=== PATIENT | male | born 1985 | race Two or more races ===

== ENCOUNTER → 2016-12-01 | Outpatient (REF) | payer BC ==
[~2016-12-01] MED LIST: IBUP200C10 PO; MOBI15TA PO; TIZA4CAP3 PO
[2016-12-01 12:54] LABS: BASO % 0.8 % (0.0-1.0); EOS # 0.2 K/mm3 (0.0-0.50); LARGE UNSTAINED CELL # 0.3 K/mm3 (0.0-0.4); LARGE UNSTAINED CELL % 4.6 % (0.0-4.0); LYMPH # 1.9 K/mm3 (1.5-4.5); LYMPH % 31.5 % (24.0-44.0); MEAN CORPUSCULAR HEMOGLOBIN 31.3 pg (27.0-33.0); MEAN CORPUSCULAR VOLUME 87.1 fl (80.0-96.0); MONO # 0.3 K/mm3 (0.0-0.8); MONO % 4.4 % (0.0-5.0); NEUTROPHILS # 3.4 K/mm3 (1.8-7.7); NEUTROPHILS % 54.8 % (36.0-66.0); PLATELET COUNT, AUTOMATED 243 k/mm3 (150-450); WHITE BLOOD COUNT 6.2 K/mm3 (4.0-10.0)
[2016-12-01 13:19] LABS: ALBUMIN 4.1 GM/DL (3.2-5.2); ALBUMIN/GLOBULIN RATIO 1.32 (1.00-1.93); ALKALINE PHOSPHATASE 78 U/L (45-117); ALT/SGPT 123 U/L (12-78); ANION GAP 11 MEQ/L (8-16); AST/SGOT 36 U/L (15-37); BILIRUBIN,TOTAL 0.6 MG/DL (0.2-1.0); BLOOD UREA NITROGEN 13 MG/DL (7-18); CALCIUM LEVEL 8.9 MG/DL (8.5-10.1); CARBON DIOXIDE LEVEL 24 MEQ/L (21-32); CHLORIDE LEVEL 107 MEQ/L (98-107); CHOLESTEROL LEVEL 232 MG/DL (<200); CREATININE FOR GFR 0.81 MG/DL (0.70-1.30); FREE T4 1.18 NG/DL (0.76-1.46); GLOMERULAR FILTRATION RATE > 60.0 (>60); GLUCOSE, FASTING 97 MG/DL (70-105); POTASSIUM SERUM 4.1 MEQ/L (3.5-5.1); SODIUM LEVEL 142 MEQ/L (136-145); TOTAL PROTEIN 7.2 GM/DL (6.4-8.2); TRIGLYCERIDES LEVEL 177 MG/DL (<150)
--- NOTE | 2016-12-17 09:51 | ECWPNAD ---
PATIENT NAME: BISHOP GONZALES : 1985 GENDER: MALE VISIT DATE: 12/01/2016 DISCHARGE DATE: 12/01/16 0000 VISIT LOCKED DATE TIME: PHYSICIAN: CAT DU RESOURCE: UZMA AVITIA REASON FOR APPOINTMENT 1. LABS PAST MEDICAL HISTORY 10/26 - DIFFUSE DISC BULGE AT L4-5, MINIMAL THECAL SAC COMPRESSION GERD ALLERGIES NO[ALLERGIES VERIFIED] ASSESSMENTS ELEVATED BLOOD-PRESSURE READING, WITHOUT DIAGNOSIS OF HYPERTENSION - R03.0 (PRIMARY) FAMILY HISTORY OF HEART DISEASE - Z82.49 LOOSE STOOLS - R19.5 TREATMENT ELEVATED BLOOD-PRESSURE READING, WITHOUT DIAGNOSIS OF HYPERTENSION LAB: CBC WITH DIFFERENTIAL WBC 6.2 (4.0-10.0 - K/MM3) RBC 5.25 (4.30-6.10 - M/MM3) HEMOGLOBIN 16.4 (14.0-18.0 - G/DL) HEMATOCRIT 45.7 (42.0-52.0 - %) MCV 87.1 (80.0-96.0 - FL) MCH 31.3 (27.0-33.0 - PG) MCHC 36.0 (32.0-36.5 - G/DL) RDW 13.0 (11.5-14.5 - %) PLATELET COUNT 243 (150-450 - K/MM3) LYMPH % 31.5 (24.0-44.0 - %) MONO % 4.4 (0.0-5.0 - %) NEUT % 54.8 (36.0-66.0 - %) EOS % 4.0 (0.0-3.0 - %) BASO % 0.8 (0.0-1.0 - %) NEUT # 3.4 (1.8-7.7 - K/MM3) LYMPH # 1.9 (1.5-4.5 - K/MM3) MONO # 0.3 (0.0-0.8 - K/MM3) EOS # 0.2 (0.0-0.50 - K/MM3) BASO # 0.0 (0.0-0.2 - K/MM3) LAB: COMPREHENSIVE METABOLIC PROFILE GLUCOSE 97 (70-105 - MG/DL) BUN 13 (7-18 - MG/DL) CREATININE 0.81 (0.70-1.30 - MG/DL) GLOMERULAR FILTRATION RATE > 60.0 (>60 - ) SODIUM 142 (136-145 - MEQ/L) POTASSIUM 4.1 (3.5-5.1 - MEQ/L) CHLORIDE 107 (98-107 - MEQ/L) CARBON DIOXIDE 24 (21-32 - MEQ/L) CALCIUM 8.9 (8.5-10.1 - MG/DL) AST/SGOT 36 (15-37 - U/L) ALT/SGPT 123 (12-78 - U/L) ALK PHOS 78 (45-117 - U/L) BILIRUBIN,TOTAL 0.6 (0.2-1.0 - MG/DL) TOTAL PROTEIN 7.2 (6.4-8.2 - GM/DL) ALBUMIN 4.1 (3.2-5.2 - GM/DL) ALB/GLOB RATIO 1.32 (1.00-1.93 - ) LAB: FREE T4 FREE T4 1.18 (0.76-1.46 - NG/DL) LAB: LIPID PANEL (CARDIAC RISK) TRIGLYCERIDES 177 (<150 - MG/DL) CHOLESTEROL 232 (<200 - MG/DL) HDL CHOLESTEROL 40 (>40 - MG/DL) LDL CHOLESTEROL 156.6 (<100 - MG/DL) [id number] 192 ( - MG/DL) CHOL/HDL RATIO 5.800 (<5 - ) LAB: TSH TSH ULTRASENSITIVE 0.940 (0.358-3.740 - UIU/ML) LAB: VITAMIN D 25-HYDROXY VITAMIN D 25 OH 21.0 (30.0-100.0 - NG/ML) FAMILY HISTORY OF HEART DISEASE LAB: CBC WITH DIFFERENTIAL WBC 6.2 (4.0-10.0 - K/MM3) RBC 5.25 (4.30-6.10 - M/MM3) HEMOGLOBIN 16.4 (14.0-18.0 - G/DL) HEMATOCRIT 45.7 (42.0-52.0 - %) MCV 87.1 (80.0-96.0 - FL) MCH 31.3 (27.0-33.0 - PG) MCHC 36.0 (32.0-36.5 - G/DL) RDW 13.0 (11.5-14.5 - %) PLATELET COUNT 243 (150-450 - K/MM3) LYMPH % 31.5 (24.0-44.0 - %) MONO % 4.4 (0.0-5.0 - %) NEUT % 54.8 (36.0-66.0 - %) EOS % 4.0 (0.0-3.0 - %) BASO % 0.8 (0.0-1.0 - %) NEUT # 3.4 (1.8-7.7 - K/MM3) LYMPH # 1.9 (1.5-4.5 - K/MM3) MONO # 0.3 (0.0-0.8 - K/MM3) EOS # 0.2 (0.0-0.50 - K/MM3) BASO # 0.0 (0.0-0.2 - K/MM3) LAB: COMPREHENSIVE METABOLIC PROFILE GLUCOSE 97 (70-105 - MG/DL) BUN 13 (7-18 - MG/DL) CREATININE 0.81 (0.70-1.30 - MG/DL) GLOMERULAR FILTRATION RATE > 60.0 (>60 - ) SODIUM 142 (136-145 - MEQ/L) POTASSIUM 4.1 (3.5-5.1 - MEQ/L) CHLORIDE 107 (98-107 - MEQ/L) CARBON DIOXIDE 24 (21-32 - MEQ/L) CALCIUM 8.9 (8.5-10.1 - MG/DL) AST/SGOT 36 (15-37 - U/L) ALT/SGPT 123 (12-78 - U/L) ALK PHOS 78 (45-117 - U/L) BILIRUBIN,TOTAL 0.6 (0.2-1.0 - MG/DL) TOTAL PROTEIN 7.2 (6.4-8.2 - GM/DL) ALBUMIN 4.1 (3.2-5.2 - GM/DL) ALB/GLOB RATIO 1.32 (1.00-1.93 - ) LAB: FREE T4 FREE T4 1.18 (0.76-1.46 - NG/DL) LAB: LIPID PANEL (CARDIAC RISK) TRIGLYCERIDES 177 (<150 - MG/DL) CHOLESTEROL 232 (<200 - MG/DL) HDL CHOLESTEROL 40 (>40 - MG/DL) LDL CHOLESTEROL 156.6 (<100 - MG/DL) [id number] 192 ( - MG/DL) CHOL/HDL RATIO 5.800 (<5 - ) LAB: TSH TSH ULTRASENSITIVE 0.940 (0.358-3.740 - UIU/ML) LAB: VITAMIN D 25-HYDROXY VITAMIN D 25 OH 21.0 (30.0-100.0 - NG/ML) DISPOSITION & COMMUNICATION ELECTRONICALLY SIGNED BY JASON SEN ON 12/14/2016 AT 10:14 AM EDT DISCLAIMER : THIS IS A VISIT SUMMARY EXTRACTED FROM THE [facility] CHART. IT IS NOT A COPY OF THE [facility] PROGRESS NOTE. ZARAD
== END ==
LOC: M SFHCADAM 10:37
PROVIDERS: ATTEND Physician Assistant Medical
DX: R03.0 Elevated blood-pressure reading, without diagnosis of hypertension (principal); Z82.49 Family history of ischemic heart disease and other diseases of the circulatory system

== ENCOUNTER → 2017-10-11 | Outpatient (REF) | payer BC ==
[2017-10-11 20:29] LABS: ALBUMIN 4.2 GM/DL (3.2-5.2); ALBUMIN/GLOBULIN RATIO 1.17 (1.00-1.93); ALKALINE PHOSPHATASE 88 U/L (45-117); ALT/SGPT 125 U/L (12-78); ANION GAP 8 MEQ/L (8-16); AST/SGOT 42 U/L (7-37); BILIRUBIN,TOTAL 0.5 MG/DL (0.2-1.0); BLOOD UREA NITROGEN 10 MG/DL (7-18); CALCIUM LEVEL 9.3 MG/DL (8.5-10.1); CARBON DIOXIDE LEVEL 29 MEQ/L (21-32); CHLORIDE LEVEL 107 MEQ/L (98-107); CREATININE FOR GFR 1.03 MG/DL (0.70-1.30); GLOMERULAR FILTRATION RATE > 60.0 (>60); GLUCOSE, FASTING 114 MG/DL (70-100); SODIUM LEVEL 144 MEQ/L (136-145); TOTAL PROTEIN 7.8 GM/DL (6.4-8.2)
== END ==
LOC: M SFHCADAM 11:15
DX: K21.9 Gastro-esophageal reflux disease without esophagitis (principal); R10.32 Left lower quadrant pain; R19.5 Other fecal abnormalities
CPT/HCPCS: 80053

== ENCOUNTER → 2017-10-19 | Outpatient (CLI) | payer BC ==
[~2017-10-19] MED LIST changes: +GASTROGRAFIN SOLUTION 30ML (Q9963) As Ordered; -IBUP200C10 PO; +ISOVUE-370 76% 100ML VIAL (Q9967) As Ordered; -MOBI15TA PO; -TIZA4CAP3 PO
== END ==
LOC: M RAD 13:34
DX: R10.32 Left lower quadrant pain (principal); K57.32 Diverticulitis of large intestine without perforation or abscess without bleeding
CPT/HCPCS: Q9963

== ENCOUNTER → 2017-10-22 | Outpatient (REF) | payer BC ==
[2017-10-22 12:38] LABS: ALBUMIN 4.2 GM/DL (3.2-5.2); ALBUMIN/GLOBULIN RATIO 1.11 (1.00-1.93); ALKALINE PHOSPHATASE 95 U/L (45-117); ALT/SGPT 129 U/L (12-78); ANION GAP 8 MEQ/L (8-16); AST/SGOT 58 U/L (7-37); BILIRUBIN,TOTAL 0.4 MG/DL (0.2-1.0); BLOOD UREA NITROGEN 13 MG/DL (7-18); CALCIUM LEVEL 9.6 MG/DL (8.5-10.1); CARBON DIOXIDE LEVEL 27 MEQ/L (21-32); CHLORIDE LEVEL 106 MEQ/L (98-107); GLOMERULAR FILTRATION RATE > 60.0 (>60); GLUCOSE, FASTING 86 MG/DL (70-100); POTASSIUM SERUM 4.4 MEQ/L (3.5-5.1); SODIUM LEVEL 141 MEQ/L (136-145)
[2017-10-22 13:00] LABS: HEPATITIS B SURFACE ANTIGEN NEGATIVE (NEGATIVE)
[2017-10-22 13:26] LABS: HEPATITIS C VIRUS ABY INDEX 0.1 INDEX (<0.8)
[2017-10-22 13:27] LABS: HEPATITIS B CORE ANTIBODY IGM NEGATIVE (NEGATIVE)
[2017-10-22 13:29] LABS: HEPATITIS A ANTIBODY IGM NEGATIVE (NEGATIVE)
== END ==
LOC: M SFHCADAM 10:37
DX: R94.5 Abnormal results of liver function studies (principal)
CPT/HCPCS: 80053

== ENCOUNTER → 2017-10-26 | Outpatient (CLI) | payer BC | LOC: M RAD 06:59 | DX: R94.5 Abnormal results of liver function studies (principal); R16.0 Hepatomegaly, not elsewhere classified | CPT/HCPCS: 76705 ==

== ENCOUNTER → 2018-04-13 | Outpatient (REF) | payer BC ==
[~2018-04-13] MED LIST changes: -GASTROGRAFIN SOLUTION 30ML (Q9963) As Ordered; +IBUP200C25 PO; -ISOVUE-370 76% 100ML VIAL (Q9967) As Ordered; +MOBI15TA PO; +TIZA4CAP PO
[2018-04-13 14:43] LABS: ALBUMIN 4.1 GM/DL (3.2-5.2); ALT/SGPT 60 U/L (12-78); BILIRUBIN,TOTAL 0.7 MG/DL (0.2-1.0); BLOOD UREA NITROGEN 12 MG/DL (7-18); CALCIUM LEVEL 8.8 MG/DL (8.5-10.1); CARBON DIOXIDE LEVEL 29 MEQ/L (21-32); CHLORIDE LEVEL 105 MEQ/L (98-107); CHOLESTEROL LEVEL 130 MG/DL (<200); CHOLESTEROL RISK RATIO 4.482 (<5); CREATININE FOR GFR 0.91 MG/DL (0.70-1.30); GLOMERULAR FILTRATION RATE > 60.0 (>60); GLUCOSE, FASTING 99 MG/DL (70-100); HDL CHOLESTEROL 29 MG/DL (>40); LDL CHOLESTEROL 75 MG/DL (<100); NON-HDL-C 101 MG/DL; POTASSIUM SERUM 4.5 MEQ/L (3.5-5.1); SODIUM LEVEL 140 MEQ/L (136-145); TRIGLYCERIDES LEVEL 132 MG/DL (<150)
== END ==
LOC: M SFHCADAM 12:09
PROVIDERS: ATTEND Physician Assistant Medical
DX: E78.1 Pure hyperglyceridemia (principal); K76.0 Fatty (change of) liver, not elsewhere classified

== ENCOUNTER → 2019-01-02 | Outpatient (CLI) | payer BC ==
--- NOTE | 2019-01-02 09:58 | REP ---
MRI LEFT KNEE: TECHNIQUE: Axial proton density fat saturation, sagittal proton density T2 STIR, water excitation, coronal proton density, proton density fat saturation. Menisci show no evidence of a tear. The cruciate and collateral ligaments are intact. The extensor mechanism is intact. There is mild global chondromalacia without evidence of osteochondral defect. Mild fissuring is noted of the cartilage of the medial patellar facet. There is no bone marrow edema or occult fracture. The medial and lateral patellar retinacula are intact. There is a small joint effusion. No popliteal cyst is seen. IMPRESSION: No evidence of meniscal tear or other evidence of internal derangement. Mild global chondromalacia. Mild fissuring is noted of the cartilage of the medial patellar facet. No bone marrow edema. Small joint effusion. Electronically Signed by Daniel Miles MD 01/03/2019 05:27 P
== END ==
LOC: M RAD 06:39
PROVIDERS: ATTEND Orthopaedic Surgery Sports Medicine
DX: M22.42 Chondromalacia patellae, left knee (principal); M25.462 Effusion, left knee; M25.562 Pain in left knee; M94.8X8 Other specified disorders of cartilage, other site; S83.32XA Tear of articular cartilage of left knee, current, initial encounter

== ENCOUNTER → 2019-04-04 | Outpatient (CLI) | payer BC ==
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
== END ==
LOC: M ADAMS 14:27
PROVIDERS: ATTEND Physician Assistant Medical
DX: M54.2 Cervicalgia (principal); M25.78 Osteophyte, vertebrae

== ENCOUNTER → 2020-05-17 | Outpatient (CLI) | payer BC ==
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
== END ==
LOC: M ADAMS 14:33
PROVIDERS: ATTEND Physician Assistant Medical
DX: M54.41 Lumbago with sciatica, right side (principal)

== ENCOUNTER → 2020-05-17 | Outpatient (REF) | payer BC ==
[2020-05-17 16:24] LABS: BASO % 0.5 % (0.0-1.0); EOS # 0.4 10^3/uL (0.0-0.5); EOS % 4.7 % (0.0-3.0); HEMATOCRIT 48.6 % (42.0-52.0); HEMOGLOBIN 16.8 g/dl (13.5-17.5); LYMPH # 2.7 10^3/uL (1.5-5.0); LYMPH % 35.4 % (24.0-44.0); MEAN CORPUSCULAR HEMOGLOBIN 29.8 pg (27.0-33.0); MEAN CORPUSCULAR HGB CONC 34.6 g/dl (32.0-36.5); MEAN CORPUSCULAR VOLUME 86.3 fl (80.0-96.0); MONO # 0.6 10^3/uL (0.0-0.8); MONO % 8.1 % (2.0-8.0); NEUTROPHILS # 3.9 10^3/uL (1.5-8.5); NEUTROPHILS % 50.9 % (36.0-66.0); PLATELET COUNT, AUTOMATED 248 10^3/uL (150-450); RED BLOOD COUNT 5.63 10^6/uL (4.30-6.10); WHITE BLOOD COUNT 7.7 10^3/uL (4.0-10.0)
[2020-05-17 17:10] LABS: ALBUMIN 4.4 GM/DL (3.2-5.2); ALT/SGPT 35 U/L (12-78); BILIRUBIN,TOTAL 0.4 MG/DL (0.2-1.0); BLOOD UREA NITROGEN 16 MG/DL (7-18); CALCIUM LEVEL 9.7 MG/DL (8.5-10.1); CARBON DIOXIDE LEVEL 29 MEQ/L (21-32); CHLORIDE LEVEL 104 MEQ/L (98-107); CHOLESTEROL LEVEL 238 MG/DL (<200); CHOLESTEROL RISK RATIO 5.534 (<5); CREATININE FOR GFR 0.99 MG/DL (0.70-1.30); GLOMERULAR FILTRATION RATE > 60.0 (>60); GLUCOSE, FASTING 85 MG/DL (70-100); HDL CHOLESTEROL 43 MG/DL (>40); LDL CHOLESTEROL 172 MG/DL (<100); NON-HDL-C 195 MG/DL; SODIUM LEVEL 137 MEQ/L (136-145); TOTAL PROTEIN 7.6 GM/DL (6.4-8.2); TRIGLYCERIDES LEVEL 115 MG/DL (<150)
== END ==
LOC: M SFHCADAM 14:29
PROVIDERS: ATTEND Physician Assistant Medical
DX: K21.9 Gastro-esophageal reflux disease without esophagitis (principal); E78.1 Pure hyperglyceridemia; K76.0 Fatty (change of) liver, not elsewhere classified

== ENCOUNTER 2020-09-27 00:50 | Emergency (ER) | payer BC ==
[~2020-09-27] VITALS: Ht 177.8 cm; Wt 93.0 kg
[2020-09-27] MEDS ORDERED: SIMV20TA22 (01:06)
[2020-09-27] MEDS ORDERED: NS 1,000 ML IV ONE (01:25)
[2020-09-27] MEDS ORDERED: ONDANSETRON 4MG/2ML VIAL IV ONE (01:25)
[2020-09-27] MEDS ORDERED: ISOVUE-370 76% 100ML VIAL As Ordered ONE (01:28)
[2020-09-27 02:08] LABS: BASO # 0.1 10^3/uL (0.0-0.2); BASO % 0.4 % (0.0-1.0); EOS # 0.2 10^3/uL (0.0-0.5); EOS % 1.2 % (0.0-3.0); HEMATOCRIT 49.8 % (42.0-52.0); HEMOGLOBIN 17.6 g/dl (13.5-17.5); LYMPH # 1.9 10^3/uL (1.5-5.0); LYMPH % 12.7 % (24.0-44.0); MEAN CORPUSCULAR HEMOGLOBIN 31.6 pg (27.0-33.0); MEAN CORPUSCULAR HGB CONC 35.3 g/dl (32.0-36.5); MEAN CORPUSCULAR VOLUME 89.4 fl (80.0-96.0); MONO # 0.6 10^3/uL (0.0-0.8); NEUTROPHILS % 81.2 % (36.0-66.0); PLATELET COUNT, AUTOMATED 232 10^3/uL (150-450); RED BLOOD COUNT 5.57 10^6/uL (4.30-6.10); WHITE BLOOD COUNT 14.8 10^3/uL (4.0-10.0)
[2020-09-27] MEDS ORDERED: KETOROLAC 30 MG/ML 1ML VIAL IV ONE (02:10)
[2020-09-27 02:38] LABS: ALBUMIN 4.5 GM/DL (3.2-5.2); ALT/SGPT 63 U/L (12-78); AMYLASE 61 U/L (25-115); BILIRUBIN,DIRECT < 0.1 MG/DL (0.0-0.2); BILIRUBIN,TOTAL 0.2 MG/DL (0.2-1.0); CK-MB VALUE MASS < 1.0 NG/ML (<3.6); CPK CREATINE PHOSPHOKINASE 190 U/L (39-308); ETHYL ALCOHOL (ETHANOL) 0.193 % (0.000-0.010); LIPASE 137 U/L (73-393); MB/CK RELATIVE INDEX 0.53 (< OR =4); TOTAL PROTEIN 8.1 GM/DL (6.4-8.2); TROPONIN I < 0.02 NG/ML (< 0.10)
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
[2020-09-27] MEDS ORDERED: KETO10TAB PO (04:19)
[2020-09-27 04:26] VITALS: BP 165/72
== END 2020-09-27 04:29 | disposition home or self-care (01) ==
LOC: M ED 00:50
DX: Z04.1 Encounter for examination and observation following transport accident (principal); M54.2 Cervicalgia; E78.5 Hyperlipidemia, unspecified; K21.9 Gastro-esophageal reflux disease without esophagitis; Z79.899 Other long term (current) drug therapy
CPT/HCPCS: 70450; 71260; 72125; 74177; 80047; 80076; 82077; 82150; 82550; 82553; 83605; 83690; 84484; 85025; 93041; 94760; 96361; 96374; 96375; 99284; J1885; J2405; Q9967

== ENCOUNTER → 2022-02-10 | Outpatient (REF) | payer BC ==
[~2022-02-10] MED LIST changes: +KETO10TAB PO; +SIMV20TA22
[2022-02-10 14:07] LABS: BASO # 0.1 10^3/uL (0.0-0.2); BASO % 0.6 % (0.0-1.0); EOS # 0.3 10^3/uL (0.0-0.5); EOS % 3.4 % (0.0-3.0); HEMOGLOBIN 15.8 g/dl (13.5-17.5); LYMPH # 2.5 10^3/uL (1.5-5.0); LYMPH % 30.2 % (24.0-44.0); MEAN CORPUSCULAR HEMOGLOBIN 29.6 pg (27.0-33.0); MEAN CORPUSCULAR HGB CONC 33.6 g/dl (32.0-36.5); MEAN CORPUSCULAR VOLUME 88.2 fl (80.0-96.0); MONO # 0.6 10^3/uL (0.0-0.8); MONO % 7.4 % (2.0-8.0); NEUTROPHILS # 4.8 10^3/uL (1.5-8.5); NEUTROPHILS % 57.9 % (36.0-66.0); PLATELET COUNT, AUTOMATED 270 10^3/uL (150-450); RED BLOOD COUNT 5.33 10^6/uL (4.30-6.10); WHITE BLOOD COUNT 8.3 10^3/uL (4.0-10.0)
[2022-02-10 14:23] LABS: CHLORIDE LEVEL 103 MMOL/L (98-107); SODIUM LEVEL 139 MMOL/L (136-145)
[2022-02-10 14:24] LABS: ALBUMIN 4.3 G/DL (3.2-5.2); CARBON DIOXIDE LEVEL 28 MMOL/L (20-31)
[2022-02-10 14:28] LABS: BLOOD UREA NITROGEN 15 MG/DL (9-23); TRIGLYCERIDES LEVEL 120 MG/DL (<150)
[2022-02-10 14:29] LABS: ALKALINE PHOSPHATASE 70 U/L (46-116); BILIRUBIN,TOTAL 0.4 MG/DL (0.3-1.2); CALCIUM LEVEL 9.9 MG/DL (8.5-10.1); GLUCOSE, FASTING 98 MG/DL (60-100)
[2022-02-10 14:31] LABS: ALT/SGPT 53 U/L (7.0-40); AST/SGOT 26 U/L (<34); CHOLESTEROL LEVEL 156 MG/DL (<200); CHOLESTEROL RISK RATIO 4.34 (<5); CREATININE FOR GFR 0.94 MG/DL (0.70-1.30); GLOMERULAR FILTRATION RATE > 60.0 (>60); HDL CHOLESTEROL 35.9 MG/DL (>40); LDL CHOLESTEROL 96.1 MG/DL (<100); NON-HDL-C 120 MG/DL
[2022-02-10 14:32] LABS: THYROID STIMULATING HORMONE 0.752 uIU/ML (0.55-4.78)
== END ==
LOC: M SFHCADAM 10:41
PROVIDERS: ATTEND Physician Assistant Medical
DX: K21.9 Gastro-esophageal reflux disease without esophagitis (principal); E78.1 Pure hyperglyceridemia; K76.0 Fatty (change of) liver, not elsewhere classified

== ENCOUNTER → 2023-02-15 | Outpatient (REF) | payer OTHER ==
[2023-02-15 18:00] LABS: BASO # 0.1 10^3/uL (0.0-0.2); BASO % 0.6 % (0.0-1.0); EOS # 0.2 10^3/uL (0.0-0.5); EOS % 2.7 % (0.0-3.0); HEMATOCRIT 48.5 % (42.0-52.0); HEMOGLOBIN 16.5 g/dl (13.5-17.5); LYMPH # 2.2 10^3/uL (1.5-5.0); LYMPH % 25.2 % (24.0-44.0); MEAN CORPUSCULAR HEMOGLOBIN 30.4 pg (27.0-33.0); MEAN CORPUSCULAR VOLUME 89.3 fl (80.0-96.0); MONO # 0.6 10^3/uL (0.0-0.8); MONO % 7.1 % (2.0-8.0); NEUTROPHILS # 5.6 10^3/uL (1.5-8.5); NEUTROPHILS % 64.1 % (36.0-66.0); PLATELET COUNT, AUTOMATED 240 10^3/uL (150-450); RED BLOOD COUNT 5.43 10^6/uL (4.30-6.10); WHITE BLOOD COUNT 8.8 10^3/uL (4.0-10.0)
[2023-02-15 18:34] LABS: ALBUMIN 4.2 G/DL (3.2-5.2); ALKALINE PHOSPHATASE 75 U/L (46-116); ALT/SGPT 40 U/L (7.0-40); AST/SGOT 22 U/L (<34); BILIRUBIN,TOTAL 0.4 MG/DL (0.3-1.2); BLOOD UREA NITROGEN 7 MG/DL (9-23); CALCIUM LEVEL 9.5 MG/DL (8.5-10.1); CARBON DIOXIDE LEVEL 27 MMOL/L (20-31); CHLORIDE LEVEL 104 MMOL/L (98-107); CHOLESTEROL LEVEL 225 MG/DL (<200); CHOLESTEROL RISK RATIO 5.03 (<5); CREATININE FOR GFR 0.92 MG/DL (0.70-1.30); GLOMERULAR FILTRATION RATE > 60.0 (>60); GLUCOSE, FASTING 75 MG/DL (60-100); HDL CHOLESTEROL 44.7 MG/DL (>40); LDL CHOLESTEROL 143.3 MG/DL (<100); NON-HDL-C 180.3 MG/DL; POTASSIUM SERUM 4.8 MMOL/L (3.5-5.1); SODIUM LEVEL 140 MMOL/L (136-145); TOTAL PROTEIN 7.1 G/DL (5.7-8.2); TRIGLYCERIDES LEVEL 185 MG/DL (<150)
== END ==
LOC: M SFHCADAM 14:01
PROVIDERS: ATTEND Physician Assistant Medical
DX: Z00.00 Encounter for general adult medical examination without abnormal findings (principal); K21.9 Gastro-esophageal reflux disease without esophagitis; E78.1 Pure hyperglyceridemia; K76.0 Fatty (change of) liver, not elsewhere classified

== ENCOUNTER → 2024-01-03 | Outpatient (CLI) | payer OTHER | LOC: M SOG 07:25 | PROVIDERS: ATTEND Physician Assistant | DX: M79.644 Pain in right finger(s) (principal) ==

== ENCOUNTER → 2024-01-05 | Outpatient (CLI) | payer OTHER | LOC: M SOG 10:51 | PROVIDERS: ATTEND Physician Assistant | DX: M25.511 Pain in right shoulder (principal) ==

== ENCOUNTER → 2024-02-23 | Outpatient (REF) | payer OTHER ==
[2024-02-23 14:20] LABS: ALBUMIN 3.8 G/DL (3.2-5.2); ALKALINE PHOSPHATASE 71 U/L (40-129); ALT/SGPT 24 U/L (7.0-40); AST/SGOT 15 U/L (<34); BILIRUBIN,TOTAL 0.4 MG/DL (0.3-1.2); BLOOD UREA NITROGEN 9 MG/DL (9-23); CALCIUM LEVEL 10.1 MG/DL (8.5-10.1); CARBON DIOXIDE LEVEL 31 MMOL/L (20-31); CHLORIDE LEVEL 106 MMOL/L (98-107); CHOLESTEROL LEVEL 228 MG/DL (<200); CHOLESTEROL RISK RATIO 5.14 (<5); CREATININE FOR GFR 0.94 MG/DL (0.70-1.30); GLOMERULAR FILTRATION RATE > 60.0 (>60); GLUCOSE, FASTING 119 MG/DL (60-100); HDL CHOLESTEROL 44.3 MG/DL (>40); LDL CHOLESTEROL 159.3 MG/DL (<100); NON-HDL-C 183.7 MG/DL; POTASSIUM SERUM 4.8 MMOL/L (3.5-5.1); SODIUM LEVEL 143 MMOL/L (136-145); TOTAL PROTEIN 6.9 G/DL (5.7-8.2); TRIGLYCERIDES LEVEL 122 MG/DL (<150)
[2024-02-23 14:21] LABS: THYROID STIMULATING HORMONE 0.675 uIU/ML (0.55-4.78)
== END ==
LOC: M SFHCADAM 08:02
PROVIDERS: ATTEND Physician Assistant Medical
DX: E78.1 Pure hyperglyceridemia (principal); K76.0 Fatty (change of) liver, not elsewhere classified

== ENCOUNTER 2024-04-23 10:12 | Emergency (ER) | payer OTHER ==
[~2024-04-23] VITALS: Ht 175.3 cm; Wt 79.6 kg
[2024-04-23 10:15] VITALS: TEMP 98.2
[2024-04-23] MEDS ORDERED: PRIL20TA2 PO (10:28)
[2024-04-23] MEDS ORDERED: BUPR150T12 PO (10:28)
[2024-04-23] MEDS ORDERED: ISOVUE-370 76% 100ML VIAL As Ordered ONE (10:59)
[2024-04-23 11:15] LABS: BASO % 0.3 % (0.0-1.0); EOS % 0.3 % (0.0-3.0); HEMATOCRIT 48.4 % (42.0-52.0); HEMOGLOBIN 16.9 g/dl (13.5-17.5); LYMPH # 1.7 10^3/uL (1.5-5.0); LYMPH % 14.3 % (24.0-44.0); MEAN CORPUSCULAR HGB CONC 34.9 g/dl (32.0-36.5); MONO # 0.9 10^3/uL (0.0-0.8); MONO % 7.7 % (2.0-8.0); NEUTROPHILS # 8.9 10^3/uL (1.5-8.5); NEUTROPHILS % 77.1 % (36.0-66.0); PLATELET COUNT, AUTOMATED 246 10^3/uL (150-450); RED BLOOD COUNT 5.63 10^6/uL (4.30-6.10); WHITE BLOOD COUNT 11.5 10^3/uL (4.0-10.0)
[2024-04-23 11:31] LABS: INR 1.04; PROTHROMBIN TIME 13.9 SECONDS (12.5-14.5)
[2024-04-23 11:41] LABS: BLOOD UREA NITROGEN 10 MG/DL (9-23); CALCIUM LEVEL 9.1 MG/DL (8.5-10.1); CARBON DIOXIDE LEVEL 27 MMOL/L (20-31); CHLORIDE LEVEL 104 MMOL/L (98-107); CK-MB VALUE MASS 32.9 NG/ML (<3.6); CREATININE FOR GFR 0.84 MG/DL (0.70-1.30); GLOMERULAR FILTRATION RATE > 60.0 (>60); GLUCOSE, FASTING 96 MG/DL (60-100); POTASSIUM SERUM 4.2 MMOL/L (3.5-5.1); SODIUM LEVEL 140 MMOL/L (136-145)
[2024-04-23 11:48] LABS: CPK CREATINE PHOSPHOKINASE 697 U/L (46-171); MB/CK RELATIVE INDEX 4.72 (< OR =4)
[2024-04-23] MEDS: ASPIRIN 81MG CHEW TABLET PO ONE (12:31)
[2024-04-23] MEDS: HEPARIN SOD (PORCINE) 5000UNITS/ML 1ML VIAL/SYRINGE IV ONE (12:36)
[2024-04-23] MEDS: HEPARIN DRIP 25,000 UNITS in IV 1 EA IV SCH (12:36)
[2024-04-23 12:38] LABS: CK-MB VALUE MASS 35.6 NG/ML (<3.6)
[2024-04-23 12:40] LABS: MB/CK RELATIVE INDEX 5.34 (< OR =4)
[2024-04-23 12:49] VITALS: BP 121/78; O2SAT 96
== END 2024-04-23 13:05 | disposition short-term general hospital (02) ==
LOC: M ED 10:12
DX: I21.4 Non-ST elevation (NSTEMI) myocardial infarction (principal); E78.5 Hyperlipidemia, unspecified; F41.9 Anxiety disorder, unspecified; Z79.899 Other long term (current) drug therapy
CPT/HCPCS: 70450; 70496; 70498; 71045; 80047; 80048; 82550; 82553; 84484; 85025; 85610; 85730; 93005; 93041; 94760; 96374; 99285; Q9967